=== PATIENT | male | born 1985 | race Caucasian/White ===

== ENCOUNTER 2018-12-29 19:56 | Emergency (ER) | payer BC ==
[~2018-12-29] VITALS: Ht 185.4 cm; Wt 94.2 kg
[2018-12-29 20:14] VITALS: BP 165/102
[2018-12-29] MEDS ORDERED: LIDOCAINE-MPF 1%, 5ML ONE (20:42)
[2018-12-29] MEDS ORDERED: BUPIVACAINE 0.25% ONE (20:43)
[2018-12-29] MEDS ORDERED: LIDOCAINE-MPF 1%, 5ML INFIL ONE (21:00)
[2018-12-29] MEDS ORDERED: BUPIVACAINE/PF-EPI 0.25% 1:200K SQ ONE (21:00)
== END 2018-12-29 21:32 | disposition home or self-care (01) ==
LOC: ED 21:00
DX: K08.89 Other specified disorders of teeth and supporting structures (principal); Z72.9 Problem related to lifestyle, unspecified; F17.210 Nicotine dependence, cigarettes, uncomplicated
CPT/HCPCS: 64402; 99284